=== PATIENT | female | born 1970 | race African-American/Black ===

== ENCOUNTER 2022-01-19 09:25 | Emergency (ER) | payer MEDICAID ==
[~2022-01-19] VITALS: Ht 167.6 cm; Wt 75.0 kg
[2022-01-19 10:06] LABS: BASOPHILS % 1.2 % (0.0-2.0); EOSINOPHILS % 3.8 % (0.0-5.0); HEMATOCRIT. 44.1 % (36.0-48.0); LYMPHOCYTES % 36.9 % (20.0-50.0); MEAN CORPUSCULAR HEMOGLOBIN 29.5 pg (28.0-32.0); MEAN CORPUSCULAR VOLUME 86.9 fL (81.0-99.0); MONOCYTES % 12.8 % (2.0-8.0); NEUTROPHILS % 45.3 % (40.0-76.0); PLATELET 211 x1000/uL (130-400); RED BLOOD CELL COUNT 5.08 mill/uL (4.2-5.4)
[2022-01-19 10:14] LABS: CHLORIDE 107 mEq/L (98-107)
[2022-01-19 10:16] LABS: CLARITY URINE CLEAR (CLEAR); COLOR URINE YELLOW (YELLOW); KETONES URINE NEGATIVE (NEGATIVE); LEUKOCYTE ESTERASE URINE NEGATIVE (NEGATIVE); NITRITE URINE POSITIVE (NEGATIVE); OCCULT BLOOD URINE NEGATIVE (NEGATIVE); PH URINE 7.5 (4.5-8.0); PROTEIN URINE NEGATIVE (NEGATIVE); SPECIFIC GRAVITY URINE 1.018 (1.005-1.030); UROBILINOGEN URINE 0.2 E.U./dL (0.2-1.0)
[2022-01-19] MEDS ORDERED: METOCLOPRAMIDE HCL 10MG/2ML VIAL IV ONE (11:00)
[2022-01-19] MEDS ORDERED: KETOROLAC 30MG/ML VIAL IV ONE (11:00)
[2022-01-19] MEDS ORDERED: TOPUD PO (11:32)
[2022-01-19] MEDS ORDERED: NITR100C PO (11:32)
[2022-01-19] MEDS ORDERED: KETOROLAC 30MG/ML VIAL IV SCH (13:10)
[2022-01-19] MEDS ORDERED: METOCLOPRAMIDE HCL 10MG/2ML VIAL IV SCH (13:10)
[2022-01-19 13:12] VITALS: BP 120/60
== END 2022-01-19 13:30 | disposition home or self-care (01) ==
LOC: ER 09:25
DX: N39.0 Urinary tract infection, site not specified (principal); R03.0 Elevated blood-pressure reading, without diagnosis of hypertension; R94.31 Abnormal electrocardiogram [ECG] [EKG]; E78.00 Pure hypercholesterolemia, unspecified
CPT/HCPCS: 36415; 80053; 81003; 83880; 84484; 85025; 96374; 96375; 99284; J1885; J2765